=== PATIENT | male | born 1975 ===

== ENCOUNTER 2023-07-02 14:58 | Outpatient (REF) | payer OTHER, SELFPAY ==
[2023-07-02 16:07] LABS: MANUAL DIFF FLAG NO
[2023-07-02 16:19] LABS: Basophils Absolute Auto 0.1 X10*3/uL (0.0-0.2); Basophils Percent Auto 0.9 % (0-2); Eosinophils Absolute Auto 0.5 X10*3/uL (0.0-0.4); Eosinophils Percent Auto 7.6 % (0-4); Hematocrit 39.2 % (42.0-52.0); Imm Gran Abs Auto 0.02 X10*3/uL (0.00-0.03); Imm Gran Pct Auto 0.3 % (0.0-0.4); Lymphocytes Absolute Auto 2.1 X10*3/uL (1.2-4.9); Lymphocytes Percent Auto 32.3 % (20-40); Mean Corpuscular HGB Conc 33.2 g/dl (31.0-36.0); Mean Corpuscular Volume 93.6 fL (80.0-98.0); Mean Platelet Volume 10.9 fL (9.4-12.4); Monocytes Absolute Auto 0.6 X10*3/uL (0.1-1.2); Monocytes Percent Auto 8.6 % (2-11); Neutrophils Absolute Auto 3.3 x10*3/uL (2.0-8.3); Neutrophils Percent Auto 50.3 % (45-73); Platelet Count 253 X10*3/uL (160-400); Red Blood Count 4.19 X10*6/uL (4.60-5.80); Red Cell Distribution Width 12.2 % (11.0-16.0); White Blood Count 6.5 X10*3/uL (4.8-10.8)
[2023-07-02 16:39] LABS: Estimated Average Glucose 111 mg/dL; Hemoglobin A1c % 5.5 % (<6.0)
[2023-07-02 17:34] LABS: Anion Gap 14 (12-20); Blood Urea Nitrogen 15 mg/dL (9-16); Calcium 9.1 mg/dL (8.4-10.2); Carbon Dioxide 26 mmol/L (22-29); Chloride 105 mmol/L (96-108); Cholesterol 171 mg/dL (<200); Estimated Glomerular Filt Rate > 60; Glucose Random 87 mg/dL (60-115); HDL Cholesterol 58 mg/dL (>40); Iron 58 mcg/dL (45-160); LDL Cholesterol Calculated 103 mg/dL (<100); Percent Iron Saturation 23 % (15-50); Potassium 3.9 mmol/L (3.3-5.1); Sodium 141 mmol/L (135-145); Total Iron Binding Capacity 252 mcg/dL (228-428); Triglycerides 52 mg/dL (<150); Unsaturated Iron Binding 194 ug/dL
[2023-07-02 17:50] LABS: Ferritin 183 ng/mL (20-250); TSH reflex Free T4 2.71 uIU/mL (0.32-4.0)
[2023-07-03 04:00] LABS: HIV AB/AG Nonreactive (Nonreactive); HIV Num 1 0.05 S/CO (0.00-0.99); ~HepC Num1 0.21 S/CO (0.00-0.79); ~Hepatitis C Antibody Nonreactive (Nonreactive)
[2023-07-05 11:04] LABS: Transferrin 235 mg/dL (188-341)
[2023-07-05 15:14] LABS: RPR Rapid Plasma Reagin NON-REACTIVE (NON-REACTIVE)
== END 2023-07-02 14:59 | disposition home or self-care (01) ==
LOC: HO.HHCL 14:58
PROVIDERS: Visit Provider Nurse Practitioner Primary Care
DX: D64.9 Anemia, unspecified (principal); Z00.00 Encounter for general adult medical examination without abnormal findings; K62.5 Hemorrhage of anus and rectum; Z11.3 Encounter for screening for infections with a predominantly sexual mode of transmission; R63.4 Abnormal weight loss; Z13.220 Encounter for screening for lipoid disorders; E03.9 Hypothyroidism, unspecified
CPT/HCPCS: 36415; 80048; 80061; 82728; 83036; 83540; 84443; 84466; 85025; 86592; 86803; 87389